=== PATIENT | male | born 1960 | race Caucasian/White ===

== ENCOUNTER 2016-07-13 07:13 | Day surgery (SDC) | payer MEDICARE ==
[2016-07-11 12:25] LABS: ASPARTATE AMINO TRANSFERASE 75 U/L (15-37); BLOOD UREA NITROGEN 20 mg/dL (7-18)
[~2016-07-13] VITALS: Ht 185.4 cm; Wt 93.2 kg
[~2016-07-13 07:13] MED LIST: AMLO10TA2 PO; BUPIVACAINE/PF-EPI 0.25% 1:200K ONE; ENAL2.5T PO; ENAL20TA PO; METO-93 PO; METO25TA35 PO; OXYC5CAP4 PO; TAMS0.4C2 PO
[2016-07-13 07:49] VITALS: BP 120/79
[2016-07-13] MEDS ORDERED: FENTANYL PF 250 MCG/5ML ONE (07:55)
[2016-07-13] MEDS ORDERED: MIDAZOLAM 1 MG/ML, 2ML ONE (07:55)
[2016-07-13] MEDS ORDERED: LIDOCAINE 1%, 2ML ONE (08:05)
[2016-07-13] MEDS ORDERED: DEXAMETHASONE 4 MG/ML, 1ML ONE (08:42)
[2016-07-13] MEDS ORDERED: CEFAZOLIN 1,000 MG ONE (08:42)
[2016-07-13] MEDS ORDERED: SUCCINYLCHOLINE 20 MG/ML, 10ML ONE (08:42)
[2016-07-13] MEDS ORDERED: ONDANSETRON 2MG/ML, 2ML ONE (08:42)
[2016-07-13] MEDS ORDERED: PROPOFOL 10 MG/ML, 20ML ONE (08:42)
[2016-07-13] MEDS ORDERED: THROMBIN 5,000 UNIT VIAL TP ONE ×2 (09:08→09:17)
[2016-07-13] MEDS ORDERED: BUPIVACAINE/PF-EPI 0.25% 1:200K INFIL ONE (09:15)
[2016-07-13] MEDS ORDERED: OXYcodone 5 MG/5 ML ORAL.SOL UDC PO PRN (09:30)
[2016-07-13] MEDS ORDERED: LABETALOL 5MG/ML, 20ML IV PRN (09:30)
[2016-07-13] MEDS ORDERED: ONDANSETRON 2MG/ML, 2ML IVPush PRN (09:30)
[2016-07-13] MEDS ORDERED: hydrALAzine 20 MG/ML, 1ML IV PRN (09:30)
[2016-07-13] MEDS ORDERED: ACETAMINOPHEN 325 MG TABLET PO PRN (09:30)
[2016-07-13] MEDS ORDERED: FENTANYL PF 100 MCG/2ML IV PRN (09:30)
[2016-07-13] MEDS ORDERED: METOCLOPRAMIDE 5 MG/ML, 2ML IV PRN (09:30)
[2016-07-13] MEDS ORDERED: OXYcodone 5 MG/5 ML ORAL.SOL UDC ONE (10:12)
[2016-07-13] MEDS ORDERED: HYDROmorphone 2 MG/ML, 1ML ONE (10:12)
[2016-07-13] MEDS: HYDROmorphone 1 MG/ML, 1ML IV PRN ×4 (10:16→10:38)
== END 2016-07-13 11:55 ==
LOC: OUT 07:13
PROVIDERS: ATTEND Surgery
DX: C49.22 Malignant neoplasm of connective and soft tissue of left lower limb, including hip (principal); I10 Essential (primary) hypertension; N40.0 Benign prostatic hyperplasia without lower urinary tract symptoms; F17.210 Nicotine dependence, cigarettes, uncomplicated; Z87.39 Personal history of other diseases of the musculoskeletal system and connective tissue; Z83.3 Family history of diabetes mellitus; Z80.9 Family history of malignant neoplasm, unspecified
CPT/HCPCS: 27328; 36415; 80053; 85025; 85610; 88304; J0330; J0690; J1100; J1170; J2250; J2405; J2704; J3010

== ENCOUNTER 2016-08-30 08:00 | Inpatient (IN) | payer MEDICARE, MEDICAID ==
[~2016-08-30] VITALS: Ht 184.2 cm; Wt 82.0 kg
[~2016-08-30 08:00] MED LIST changes: -BUPIVACAINE/PF-EPI 0.25% 1:200K ONE
[2016-08-30 08:26] VITALS: BP 138/88
[2016-08-30 09:11] LABS: ASPARTATE AMINO TRANSFERASE 116 U/L (15-37); BLOOD UREA NITROGEN 25 mg/dL (7-18)
[2016-08-30] MEDS ORDERED: LORazepam 2 MG/ML, 1ML IV PRN (11:00)
[2016-08-30] MEDS ORDERED: TIZANIDINE 4MG TABLET PO PRN (11:00)
[2016-08-30] MEDS: MAGNESIUM SULFATE IV SCH ×2 (11:44→19:50)
[2016-08-30] MEDS: ENOXAPARIN 40 MG/0.4 ML SQ SCH (11:44)
[2016-08-30] MEDS: [UNRECOGNIZED DRUG - OTHER] IV SCH ×2 (11:44→19:50)
[2016-08-30] MEDS: POTASSIUM CHLORIDE IV SCH ×2 (11:44→19:50)
[2016-08-30] MEDS: SODIUM ACETATE IV SCH ×2 (11:44→19:50)
[2016-08-30] MEDS ORDERED: FOSAPREPITANT 150 MG in SODIUM CHLORIDE 0.9% 150 ML IV ONE (12:30)
[2016-08-30] MEDS ORDERED: SODIUM CHLORIDE 0.9% IV ONE (13:00)
[2016-08-30] MEDS ORDERED: MESNA IV ONE (13:00)
[2016-08-30] MEDS ORDERED: IFOSFAMIDE IV ONE (13:00)
[2016-08-30] MEDS: SODIUM CHLORIDE 0.9% IVPB SCH (13:05)
[2016-08-30] MEDS: MESNA IVPB SCH (13:05)
[2016-08-30] MEDS: FAMOTIDINE 20 MG/2 ML IVPush SCH ×2 (13:10→19:49)
[2016-08-30] MEDS: ONDANSETRON 16 MG, DEXAMETHASONE 12 MG in SODIUM CHLORIDE 0.9% 50 ML IVPB SCH (14:06)
[2016-08-30 14:19] VITALS: BP 128/86
[2016-08-30] MEDS: SODIUM CHLORIDE 0.9% IV SCH (18:29)
[2016-08-30] MEDS: DOXORUBICIN IV SCH (18:29)
[2016-08-30] MEDS: OXYcodone IR 5MG TABLET PO PRN (18:34)
[2016-08-30 19:39] VITALS: BP 108/66
[2016-08-31] MEDS: NICOTINE 14MG/24 HR PATCH.TD24 TD SCH ×2 (00:39→22:01)
[2016-08-31 01:58] VITALS: BP 128/77
[2016-08-31 02:40] LABS: ASPARTATE AMINO TRANSFERASE 74 U/L (15-37); BLOOD UREA NITROGEN 26 mg/dL (7-18)
[2016-08-31] MEDS: [UNRECOGNIZED DRUG - OTHER] IV SCH ×3 (04:14→21:58)
[2016-08-31] MEDS: MAGNESIUM SULFATE IV SCH ×3 (04:14→21:58)
[2016-08-31] MEDS: POTASSIUM CHLORIDE IV SCH ×3 (04:14→21:58)
[2016-08-31] MEDS: SODIUM ACETATE IV SCH ×3 (04:14→21:58)
[2016-08-31] MEDS: METOPROLOL SUCCINATE 50 MG TAB.ER.24H PO SCH (06:24)
[2016-08-31 07:00] VITALS: BP 126/78
[2016-08-31] MEDS: FAMOTIDINE 20 MG/2 ML IVPush SCH ×2 (09:10→20:50)
[2016-08-31] MEDS: TAMSULOSIN 0.4 MG CAP.ER.24H PO SCH (09:10)
[2016-08-31] MEDS: AMLODIPINE 5 MG TABLET PO SCH (09:11)
[2016-08-31] MEDS: ENALAPRIL 20MG TABLET PO SCH (09:12)
[2016-08-31] MEDS: OXYcodone IR 5MG TABLET PO PRN ×2 (09:13→18:05)
[2016-08-31] MEDS: ENOXAPARIN 40 MG/0.4 ML SQ SCH (11:46)
[2016-08-31] MEDS ORDERED: SODIUM CHLORIDE 0.9% IV SCH (13:00)
[2016-08-31] MEDS ORDERED: IFOSFAMIDE IV SCH (13:00)
[2016-08-31] MEDS: ONDANSETRON 16 MG, DEXAMETHASONE 12 MG in SODIUM CHLORIDE 0.9% 50 ML IVPB SCH (13:13)
[2016-08-31 13:24] VITALS: BP 137/71
[2016-08-31] MEDS: SODIUM CHLORIDE 0.9% IVPB SCH (14:27)
[2016-08-31] MEDS: MESNA IVPB SCH (14:27)
[2016-08-31 19:09] VITALS: BP 134/77
[2016-08-31] MEDS: DOXORUBICIN IV SCH (20:45)
[2016-08-31] MEDS: SODIUM CHLORIDE 0.9% IV SCH (20:45)
[2016-08-31] MEDS: DOCUSATE 50 MG/5 ML, 10ML UDC PO PRN (20:50)
[2016-09-01 03:47] VITALS: BP 121/70
[2016-09-01] MEDS: METOPROLOL SUCCINATE 50 MG TAB.ER.24H PO SCH (05:40)
[2016-09-01 08:11] VITALS: BP 148/76
[2016-09-01] MEDS: POTASSIUM CHLORIDE IV SCH ×2 (08:13→18:17)
[2016-09-01] MEDS: [UNRECOGNIZED DRUG - OTHER] IV SCH ×2 (08:13→18:17)
[2016-09-01] MEDS: MAGNESIUM SULFATE IV SCH ×2 (08:13→18:17)
[2016-09-01] MEDS: SODIUM ACETATE IV SCH ×2 (08:13→18:17)
[2016-09-01 09:25] VITALS: BP 155/75
[2016-09-01] MEDS: OXYcodone IR 5MG TABLET PO PRN ×2 (09:26→21:16)
[2016-09-01] MEDS: AMLODIPINE 5 MG TABLET PO SCH (09:26)
[2016-09-01] MEDS: FAMOTIDINE 20 MG/2 ML IVPush SCH ×2 (09:26→21:16)
[2016-09-01] MEDS: TAMSULOSIN 0.4 MG CAP.ER.24H PO SCH (09:27)
[2016-09-01] MEDS: ENALAPRIL 20MG TABLET PO SCH (09:27)
[2016-09-01 09:49] LABS: BLOOD UREA NITROGEN 19 mg/dL (7-18)
[2016-09-01 09:53] LABS: ASPARTATE AMINO TRANSFERASE 56 U/L (15-37)
[2016-09-01] MEDS: ENOXAPARIN 40 MG/0.4 ML SQ SCH (11:04)
[2016-09-01 11:24] VITALS: BP 128/88
[2016-09-01] MEDS ORDERED: DIGOXIN 0.25 MG/ML, 2ML IVPush ONE ×2 (12:00→15:00)
[2016-09-01] MEDS ORDERED: HEPARIN 5,000 UNITS/ML, 1ML IV ONE (12:30)
[2016-09-01] MEDS ORDERED: HEPARIN 25,000 UNITS/500ML PMX 500 ML IV PRN (12:30)
[2016-09-01 13:26] LABS: IS PT STATUS REG ER OR PRE ER? NO
[2016-09-01] MEDS: ONDANSETRON 16 MG, DEXAMETHASONE 12 MG in SODIUM CHLORIDE 0.9% 50 ML IVPB SCH (14:55)
[2016-09-01] MEDS ORDERED: AMIODARONE 150 MG in DEXTROSE 5% 100 ML IV ONE (15:00)
[2016-09-01] MEDS ORDERED: FILTER 0.22 MICRON IV ONE (15:00)
[2016-09-01] MEDS: SODIUM CHLORIDE 0.9% IVPB SCH (15:12)
[2016-09-01] MEDS: MESNA IVPB SCH (15:12)
[2016-09-01 15:20] VITALS: BP 150/93
[2016-09-01] MEDS ORDERED: MAGNESIUM SULFATE PMX 2GM/50ML 50 ML IV ONE (15:30)
[2016-09-01] MEDS: SODIUM CHLORIDE 0.9% IV SCH (16:06)
[2016-09-01] MEDS: IFOSFAMIDE IV SCH (16:06)
[2016-09-01 19:59] LABS: IS PT STATUS REG ER OR PRE ER? NO
[2016-09-01 20:49] VITALS: BP 143/90
[2016-09-01] MEDS ORDERED: SODIUM CHLORIDE 0.9% IV ONE (21:00)
[2016-09-01] MEDS ORDERED: DOXORUBICIN IV ONE (21:00)
[2016-09-01] MEDS: HEPARIN 5,000 UNITS/ML, 1ML IV PRN (23:32)
[2016-09-02 01:00] VITALS: BP 130/79
[2016-09-02] MEDS: NICOTINE 14MG/24 HR PATCH.TD24 TD SCH (01:19)
[2016-09-02] MEDS: [UNRECOGNIZED DRUG - OTHER] IV SCH ×2 (02:50→17:28)
[2016-09-02] MEDS: POTASSIUM CHLORIDE IV SCH ×2 (02:50→17:28)
[2016-09-02] MEDS: SODIUM ACETATE IV SCH ×2 (02:50→17:28)
[2016-09-02] MEDS: MAGNESIUM SULFATE IV SCH ×2 (02:50→17:28)
[2016-09-02 06:45] VITALS: BP 153/102
[2016-09-02] MEDS: METOPROLOL SUCCINATE 100 MG TAB.ER.24H PO SCH (06:45)
[2016-09-02 07:56] VITALS: BP 150/98
[2016-09-02] MEDS: TAMSULOSIN 0.4 MG CAP.ER.24H PO SCH (08:31)
[2016-09-02] MEDS: FAMOTIDINE 20 MG/2 ML IVPush SCH ×2 (08:32→21:04)
[2016-09-02] MEDS: ENALAPRIL 20MG TABLET PO SCH (08:32)
[2016-09-02] MEDS: HEPARIN 5,000 UNITS/ML, 1ML IV PRN (08:34)
[2016-09-02] MEDS ORDERED: AMLODIPINE 5 MG TABLET PO SCH (09:00)
[2016-09-02 09:32] LABS: ASPARTATE AMINO TRANSFERASE 63 U/L (15-37); BLOOD UREA NITROGEN 12 mg/dL (7-18)
[2016-09-02] MEDS: DOCUSATE 50 MG/5 ML, 10ML UDC PO PRN (10:23)
[2016-09-02] MEDS: ONDANSETRON 16 MG, DEXAMETHASONE 12 MG in SODIUM CHLORIDE 0.9% 50 ML IVPB SCH (12:30)
[2016-09-02] MEDS ORDERED: BISACODYL 10 MG SUPP PR PRN (13:00)
[2016-09-02] MEDS ORDERED: BISACODYL 5 MG EC TABLET PO PRN (13:00)
[2016-09-02] MEDS ORDERED: DOCUSATE 100 MG CAPSULE PO PRN (13:00)
[2016-09-02 15:27] VITALS: BP 135/91
[2016-09-02] MEDS ORDERED: ONDANSETRON 16 MG, DEXAMETHASONE 12 MG in SODIUM CHLORIDE 0.9% 50 ML IVPB SCH (17:30)
[2016-09-02] MEDS: IFOSFAMIDE IV SCH (17:43)
[2016-09-02] MEDS: SODIUM CHLORIDE 0.9% IV SCH (17:43)
[2016-09-02 19:15] VITALS: BP 124/78
[2016-09-02] MEDS: MESNA IVPB SCH (19:44)
[2016-09-02] MEDS: SODIUM CHLORIDE 0.9% IVPB SCH (19:44)
[2016-09-02] MEDS: ENOXAPARIN 40 MG/0.4 ML SQ SCH (21:04)
[2016-09-02] MEDS: OXYcodone IR 5MG TABLET PO PRN (21:04)
[2016-09-03 02:13] VITALS: BP 154/104
[2016-09-03] MEDS: POTASSIUM CHLORIDE IV SCH ×3 (03:32→21:13)
[2016-09-03] MEDS: MAGNESIUM SULFATE IV SCH ×3 (03:32→21:13)
[2016-09-03] MEDS: SODIUM ACETATE IV SCH ×3 (03:32→21:13)
[2016-09-03] MEDS: [UNRECOGNIZED DRUG - OTHER] IV SCH ×3 (03:32→21:13)
[2016-09-03 05:54] VITALS: BP 151/102
[2016-09-03] MEDS: METOPROLOL SUCCINATE 100 MG TAB.ER.24H PO SCH ×3 (05:55→21:15)
[2016-09-03 07:10] LABS: ASPARTATE AMINO TRANSFERASE 87 U/L (15-37); BLOOD UREA NITROGEN 15 mg/dL (7-18)
[2016-09-03 08:18] VITALS: BP 146/98
[2016-09-03] MEDS: TAMSULOSIN 0.4 MG CAP.ER.24H PO SCH (09:23)
[2016-09-03] MEDS: ENALAPRIL 20MG TABLET PO SCH (09:23)
[2016-09-03 16:00] VITALS: BP 131/87
[2016-09-03] MEDS ORDERED: ONDANSETRON 2MG/ML, 2ML ONE (17:07)
[2016-09-03] MEDS ORDERED: ONDANSETRON 2MG/ML, 2ML IVPush PRN (17:30)
[2016-09-03] MEDS ORDERED: ONDANSETRON 4 MG TABLET PO PRN (17:30)
[2016-09-03 20:00] VITALS: BP 146/100
[2016-09-03] MEDS: ENOXAPARIN 40 MG/0.4 ML SQ SCH (21:13)
[2016-09-03] MEDS: NICOTINE 14MG/24 HR PATCH.TD24 TD SCH ×2 (23:02)
[2016-09-04 03:00] VITALS: BP 133/100
[2016-09-04] MEDS: MAGNESIUM SULFATE IV SCH ×2 (05:46→15:02)
[2016-09-04] MEDS: POTASSIUM CHLORIDE IV SCH ×2 (05:46→15:02)
[2016-09-04] MEDS: SODIUM ACETATE IV SCH ×2 (05:46→15:02)
[2016-09-04] MEDS: [UNRECOGNIZED DRUG - OTHER] IV SCH ×2 (05:46→15:02)
[2016-09-04 08:00] VITALS: BP 142/99
[2016-09-04] MEDS: OXYcodone IR 5MG TABLET PO PRN ×2 (08:19→15:25)
[2016-09-04] MEDS: ENALAPRIL 20MG TABLET PO SCH (08:20)
[2016-09-04] MEDS: TAMSULOSIN 0.4 MG CAP.ER.24H PO SCH (08:20)
[2016-09-04] MEDS: METOPROLOL SUCCINATE 100 MG TAB.ER.24H PO SCH (08:20)
[2016-09-04 11:46] LABS: BLOOD UREA NITROGEN 19 mg/dL (7-18)
[2016-09-04 11:49] LABS: ASPARTATE AMINO TRANSFERASE 222 U/L (15-37)
[2016-09-04 12:01] VITALS: BP 137/95
[2016-09-04] MEDS ORDERED: ONDA-39 PO (15:37)
== END 2016-09-04 18:00 | disposition home or self-care (01) | DRG 847 ==
LOC: 3NW 08:04 → 5SO 09-01 13:34
PROVIDERS: ADMIT Internal Medicine; ATTEND Internal Medicine
PROC: 02HV33Z Insertion of Infusion Device into Superior Vena Cava, Percutaneous Approach (ICD-10-PCS; 2016-08-30)
PROC: B548ZZA Ultrasonography of Superior Vena Cava, Guidance (ICD-10-PCS; 2016-08-30)
PROC: 3E04305 Introduction of Other Antineoplastic into Central Vein, Percutaneous Approach (ICD-10-PCS; 2016-08-30)
PROC: 02HV33Z Insertion of Infusion Device into Superior Vena Cava, Percutaneous Approach (ICD-10-PCS; principal; 2016-09-01)
PROC: B5181ZA Fluoroscopy of Superior Vena Cava using Low Osmolar Contrast, Guidance (ICD-10-PCS; 2016-09-01)
DX: Z51.11 Encounter for antineoplastic chemotherapy (principal); B17.10 Acute hepatitis C without hepatic coma; D68.69 Other thrombophilia; C78.02 Secondary malignant neoplasm of left lung; C78.01 Secondary malignant neoplasm of right lung; C76.52 Malignant neoplasm of left lower limb; B19.20 Unspecified viral hepatitis C without hepatic coma; D69.6 Thrombocytopenia, unspecified; D72.829 Elevated white blood cell count, unspecified; F17.210 Nicotine dependence, cigarettes, uncomplicated; I11.9 Hypertensive heart disease without heart failure; M54.5 Low back pain; R73.9 Hyperglycemia, unspecified; G89.29 Other chronic pain; I48.91 Unspecified atrial fibrillation; N40.0 Benign prostatic hyperplasia without lower urinary tract symptoms; Z80.1 Family history of malignant neoplasm of trachea, bronchus and lung; Z92.21 Personal history of antineoplastic chemotherapy; Z90.89 Acquired absence of other organs; Z82.49 Family history of ischemic heart disease and other diseases of the circulatory system
CPT/HCPCS: 36415; 36569; 71010; 76937; 77001; 80053; 83735; 84439; 84443; 84484; 85025; 85520; 93005; 93306; J1100; J1453; J1644; J1650; J2405; J3475; J3480; J9000; J9208; J9209; C1751; J0282; J1160; J2060; J7030; J7040; S0028

== ENCOUNTER 2016-10-02 08:00 | Inpatient (IN) | payer MEDICARE, MEDICAID ==
[~2016-10-02] VITALS: Ht 185.4 cm; Wt 95.5 kg
[~2016-10-02 08:00] MED LIST changes: +ONDA-39 PO
[2016-10-02 09:30] VITALS: BP 114/81
[2016-10-02 11:10] LABS: ASPARTATE AMINO TRANSFERASE 78 U/L (15-37); BLOOD UREA NITROGEN 13 mg/dL (7-18)
[2016-10-02 11:20] LABS: HEMATOCRIT 27.9 % (39.2-51.8); HEMOGLOBIN 9.4 g/dL (13.7-18.0); WHITE BLOOD COUNT 4.3 x10^3/uL (3.4-10)
[2016-10-02] MEDS ORDERED: TIZANIDINE 4MG TABLET PO PRN (12:00)
[2016-10-02] MEDS ORDERED: OXYcodone IR 5MG TABLET PO PRN (12:00)
[2016-10-02] MEDS ORDERED: LORazepam 2 MG/ML, 1ML IVPush PRN ×2 (12:00)
[2016-10-02] MEDS ORDERED: POTASSIUM CHLORIDE 20 MEQ TAB.ER.PRT PO ONE (12:30)
[2016-10-02] MEDS: ONDANSETRON 16 MG, DEXAMETHASONE 12 MG in SODIUM CHLORIDE 0.9% 50 ML IVPB SCH (12:46)
[2016-10-02] MEDS: SODIUM ACETATE IV SCH (12:46)
[2016-10-02] MEDS: [UNRECOGNIZED DRUG - OTHER] IV SCH (12:46)
[2016-10-02] MEDS: MAGNESIUM SULFATE IV SCH (12:46)
[2016-10-02] MEDS: POTASSIUM CHLORIDE IV SCH (12:46)
[2016-10-02] MEDS: NICOTINE 14MG/24 HR PATCH.TD24 TD SCH (12:47)
[2016-10-02] MEDS: ENOXAPARIN 40 MG/0.4 ML SQ SCH (12:47)
[2016-10-02] MEDS: FAMOTIDINE 20 MG/2 ML IVPush SCH ×2 (12:47→21:09)
[2016-10-02] MEDS ORDERED: FOSAPREPITANT 150 MG in SODIUM CHLORIDE 0.9% 145 ML IV ONE (13:00)
[2016-10-02] MEDS ORDERED: MESNA IV ONE (14:00)
[2016-10-02] MEDS ORDERED: SODIUM CHLORIDE 0.9% IV ONE (14:00)
[2016-10-02] MEDS ORDERED: IFOSFAMIDE IV ONE (14:00)
[2016-10-02 14:24] VITALS: BP 103/68
[2016-10-02] MEDS: MESNA IVPB SCH (14:52)
[2016-10-02] MEDS: SODIUM CHLORIDE 0.9% IVPB SCH (14:52)
[2016-10-02] MEDS ORDERED: SODIUM CHLORIDE 0.9% IV SCH (17:00)
[2016-10-02] MEDS ORDERED: DOXORUBICIN IV SCH (17:00)
[2016-10-02] MEDS ORDERED: MAGNESIUM SULFATE PMX 4GM/100M 100 ML IVPB ONE (17:30)
[2016-10-02] MEDS ORDERED: CALCIUM GLUCONATE 9.2 MEQ in SODIUM CHLORIDE 0.9% 100 ML IV ONE (17:30)
[2016-10-02 19:22] VITALS: BP 118/77
[2016-10-02] MEDS: DOCUSATE 100 MG CAPSULE PO SCH (21:09)
[2016-10-02] MEDS: OXYcodone IR 5MG TABLET PO PRN (21:10)
[2016-10-03] MEDS: [UNRECOGNIZED DRUG - OTHER] IV SCH ×3 (00:07→16:03)
[2016-10-03] MEDS: SODIUM ACETATE IV SCH ×3 (00:07→16:03)
[2016-10-03] MEDS: POTASSIUM CHLORIDE IV SCH ×3 (00:07→16:03)
[2016-10-03] MEDS: MAGNESIUM SULFATE IV SCH ×3 (00:07→16:03)
[2016-10-03 01:12] VITALS: BP 116/73
[2016-10-03 04:17] LABS: ASPARTATE AMINO TRANSFERASE 81 U/L (15-37); BLOOD UREA NITROGEN 20 mg/dL (7-18)
[2016-10-03 04:23] LABS: HEMATOCRIT 32.5 % (39.2-51.8); HEMOGLOBIN 10.9 g/dL (13.7-18.0); WHITE BLOOD COUNT 4.4 x10^3/uL (3.4-10)
[2016-10-03 07:28] VITALS: BP 108/68
[2016-10-03] MEDS: TAMSULOSIN 0.4 MG CAP.ER.24H PO SCH (07:41)
[2016-10-03] MEDS: DOCUSATE 100 MG CAPSULE PO SCH ×2 (07:41→19:42)
[2016-10-03] MEDS: FAMOTIDINE 20 MG/2 ML IVPush SCH ×2 (07:41→19:42)
[2016-10-03] MEDS: AMLODIPINE 5 MG TABLET PO SCH (07:41)
[2016-10-03] MEDS: METOPROLOL TARTRATE 50 MG TABLET PO SCH (07:42)
[2016-10-03] MEDS: ENALAPRIL 20MG TABLET PO SCH (07:42)
[2016-10-03] MEDS: NICOTINE 14MG/24 HR PATCH.TD24 TD SCH (07:42)
[2016-10-03] MEDS: ENOXAPARIN 40 MG/0.4 ML SQ SCH (12:20)
[2016-10-03] MEDS: ONDANSETRON 16 MG, DEXAMETHASONE 12 MG in SODIUM CHLORIDE 0.9% 50 ML IVPB SCH (13:11)
[2016-10-03 13:12] VITALS: BP 97/61
[2016-10-03] MEDS ORDERED: ZOLPIDEM 10MG TABLET PO PRN (14:30)
[2016-10-03] MEDS ORDERED: FUROSEMIDE 20 MG TABLET PO ONE (14:30)
[2016-10-03] MEDS ORDERED: TEMAZEPAM 15 MG CAPSULE PO PRN (15:30)
[2016-10-03] MEDS: SODIUM CHLORIDE 0.9% IV SCH (16:11)
[2016-10-03] MEDS: IFOSFAMIDE IV SCH (16:11)
[2016-10-03] MEDS: OXYcodone IR 5MG TABLET PO PRN (19:42)
[2016-10-03] MEDS: SODIUM CHLORIDE 0.9% IVPB SCH (19:42)
[2016-10-03] MEDS: MESNA IVPB SCH (19:42)
[2016-10-03 20:25] VITALS: BP 104/62
[2016-10-04] MEDS: SODIUM CHLORIDE 0.9% IV SCH ×2 (00:43→15:54)
[2016-10-04] MEDS: DOXORUBICIN IV SCH (00:43)
[2016-10-04] MEDS: MAGNESIUM SULFATE IV SCH ×3 (01:31→20:20)
[2016-10-04] MEDS: [UNRECOGNIZED DRUG - OTHER] IV SCH ×3 (01:31→20:20)
[2016-10-04] MEDS: SODIUM ACETATE IV SCH ×3 (01:31→20:20)
[2016-10-04] MEDS: POTASSIUM CHLORIDE IV SCH ×3 (01:31→20:20)
[2016-10-04 01:46] VITALS: BP 113/75
[2016-10-04 03:38] LABS: WHITE BLOOD COUNT 9.9 x10^3/uL (3.4-10)
[2016-10-04 03:49] LABS: ASPARTATE AMINO TRANSFERASE 54 U/L (15-37); BLOOD UREA NITROGEN 21 mg/dL (7-18)
[2016-10-04] MEDS: FAMOTIDINE 20 MG/2 ML IVPush SCH ×2 (08:05→20:25)
[2016-10-04] MEDS: TAMSULOSIN 0.4 MG CAP.ER.24H PO SCH (08:07)
[2016-10-04] MEDS: METOPROLOL TARTRATE 50 MG TABLET PO SCH (08:07)
[2016-10-04] MEDS: ENALAPRIL 20MG TABLET PO SCH (08:08)
[2016-10-04] MEDS: DOCUSATE 100 MG CAPSULE PO SCH ×2 (08:08→20:25)
[2016-10-04] MEDS: AMLODIPINE 5 MG TABLET PO SCH (08:08)
[2016-10-04] MEDS: FUROSEMIDE 40 MG TABLET PO SCH (08:08)
[2016-10-04] MEDS: NICOTINE 14MG/24 HR PATCH.TD24 TD SCH (08:09)
[2016-10-04 08:11] VITALS: BP 131/79
[2016-10-04] MEDS ORDERED: FUROSEMIDE 20 MG TABLET PO SCH (09:00)
[2016-10-04] MEDS: ENOXAPARIN 40 MG/0.4 ML SQ SCH (11:36)
[2016-10-04] MEDS: ONDANSETRON 16 MG, DEXAMETHASONE 12 MG in SODIUM CHLORIDE 0.9% 50 ML IVPB SCH (14:09)
[2016-10-04 14:10] VITALS: BP 100/61
[2016-10-04] MEDS: OXYcodone IR 5MG TABLET PO PRN ×2 (14:10→20:29)
[2016-10-04] MEDS: IFOSFAMIDE IV SCH (15:54)
[2016-10-04 19:47] VITALS: BP 93/67
[2016-10-04] MEDS: SODIUM CHLORIDE 0.9% IVPB SCH (20:19)
[2016-10-04] MEDS: MESNA IVPB SCH (20:19)
[2016-10-05] MEDS: SODIUM CHLORIDE 0.9% IV SCH ×2 (01:18→15:57)
[2016-10-05] MEDS: DOXORUBICIN IV SCH (01:18)
[2016-10-05 02:30] VITALS: BP 125/70
[2016-10-05 03:52] LABS: ASPARTATE AMINO TRANSFERASE 55 U/L (15-37); BLOOD UREA NITROGEN 19 mg/dL (7-18); HEMATOCRIT 31.7 % (39.2-51.8); HEMOGLOBIN 10.7 g/dL (13.7-18.0); WHITE BLOOD COUNT 7.5 x10^3/uL (3.4-10)
[2016-10-05] MEDS: MAGNESIUM SULFATE IV SCH ×2 (04:19→13:01)
[2016-10-05] MEDS: [UNRECOGNIZED DRUG - OTHER] IV SCH ×2 (04:19→13:01)
[2016-10-05] MEDS: POTASSIUM CHLORIDE IV SCH ×2 (04:19→13:01)
[2016-10-05] MEDS: SODIUM ACETATE IV SCH ×2 (04:19→13:01)
[2016-10-05] MEDS: DOCUSATE 100 MG CAPSULE PO SCH ×2 (08:16→22:26)
[2016-10-05] MEDS: TAMSULOSIN 0.4 MG CAP.ER.24H PO SCH (08:16)
[2016-10-05] MEDS: METOPROLOL TARTRATE 50 MG TABLET PO SCH (08:16)
[2016-10-05] MEDS: ENALAPRIL 20MG TABLET PO SCH (08:16)
[2016-10-05] MEDS: AMLODIPINE 5 MG TABLET PO SCH (08:16)
[2016-10-05] MEDS: FUROSEMIDE 40 MG TABLET PO SCH (08:16)
[2016-10-05] MEDS: FAMOTIDINE 20 MG/2 ML IVPush SCH ×2 (08:16→22:26)
[2016-10-05] MEDS: NICOTINE 14MG/24 HR PATCH.TD24 TD SCH (08:17)
[2016-10-05 08:18] VITALS: BP 156/97
[2016-10-05] MEDS: ENOXAPARIN 40 MG/0.4 ML SQ SCH (11:43)
[2016-10-05] MEDS: ONDANSETRON 16 MG, DEXAMETHASONE 12 MG in SODIUM CHLORIDE 0.9% 50 ML IVPB SCH (13:01)
[2016-10-05 14:45] VITALS: BP 113/72
[2016-10-05] MEDS: IFOSFAMIDE IV SCH (15:57)
[2016-10-05 20:07] VITALS: BP 126/86
[2016-10-05] MEDS: SODIUM CHLORIDE 0.9% IVPB SCH (22:26)
[2016-10-05] MEDS: MESNA IVPB SCH (22:26)
[2016-10-06] MEDS: POTASSIUM CHLORIDE IV SCH ×3 (00:19→17:25)
[2016-10-06] MEDS: [UNRECOGNIZED DRUG - OTHER] IV SCH ×3 (00:19→17:25)
[2016-10-06] MEDS: MAGNESIUM SULFATE IV SCH ×3 (00:19→17:25)
[2016-10-06] MEDS: SODIUM ACETATE IV SCH ×3 (00:19→17:25)
[2016-10-06 02:56] VITALS: BP 121/77
[2016-10-06] MEDS: METOPROLOL TARTRATE 50 MG TABLET PO SCH (08:24)
[2016-10-06] MEDS: ENALAPRIL 20MG TABLET PO SCH (08:24)
[2016-10-06] MEDS: AMLODIPINE 5 MG TABLET PO SCH (08:24)
[2016-10-06] MEDS: TAMSULOSIN 0.4 MG CAP.ER.24H PO SCH (08:24)
[2016-10-06] MEDS: DOCUSATE 100 MG CAPSULE PO SCH ×2 (08:24→21:00)
[2016-10-06] MEDS: NICOTINE 14MG/24 HR PATCH.TD24 TD SCH (08:25)
[2016-10-06 08:30] VITALS: BP 138/92
[2016-10-06 09:12] LABS: ASPARTATE AMINO TRANSFERASE 91 U/L (15-37); BLOOD UREA NITROGEN 20 mg/dL (7-18)
[2016-10-06 09:21] LABS: HEMATOCRIT 37.6 % (39.2-51.8); HEMOGLOBIN 12.7 g/dL (13.7-18.0); WHITE BLOOD COUNT 8.6 x10^3/uL (3.4-10)
[2016-10-06] MEDS: ENOXAPARIN 40 MG/0.4 ML SQ SCH (11:08)
[2016-10-06] MEDS: OXYcodone IR 5MG TABLET PO PRN (13:33)
[2016-10-06 13:41] VITALS: BP 130/87
[2016-10-06] MEDS: ONDANSETRON 2MG/ML, 2ML IVPush PRN (18:00)
[2016-10-06] MEDS ORDERED: SODIUM CHLORIDE 0.9% IV ONE ×2 (19:00→20:00)
[2016-10-06] MEDS ORDERED: IFOSFAMIDE IV ONE (19:00)
[2016-10-06] MEDS ORDERED: MESNA IV ONE (19:00)
[2016-10-06] MEDS ORDERED: DEXAMETHASONE 4 MG/ML, 5ML IVPush ONE (19:00)
[2016-10-06 19:32] VITALS: BP 137/87
[2016-10-06] MEDS ORDERED: DOXORUBICIN IV ONE (20:00)
[2016-10-07] MEDS: [UNRECOGNIZED DRUG - OTHER] IV SCH ×2 (01:27→13:21)
[2016-10-07] MEDS: POTASSIUM CHLORIDE IV SCH ×2 (01:27→13:21)
[2016-10-07] MEDS: SODIUM ACETATE IV SCH ×2 (01:27→13:21)
[2016-10-07] MEDS: MAGNESIUM SULFATE IV SCH ×2 (01:27→13:21)
[2016-10-07 01:36] VITALS: BP 123/85
[2016-10-07 04:39] LABS: HEMATOCRIT 35.1 % (39.2-51.8); HEMOGLOBIN 11.9 g/dL (13.7-18.0); WHITE BLOOD COUNT 6.3 x10^3/uL (3.4-10)
[2016-10-07 04:48] LABS: ASPARTATE AMINO TRANSFERASE 115 U/L (15-37); BLOOD UREA NITROGEN 20 mg/dL (7-18)
[2016-10-07] MEDS: ONDANSETRON 2MG/ML, 2ML IVPush PRN (06:37)
[2016-10-07 07:38] VITALS: BP 136/90
[2016-10-07] MEDS: AMLODIPINE 5 MG TABLET PO SCH (09:55)
[2016-10-07] MEDS: DOCUSATE 100 MG CAPSULE PO SCH (09:55)
[2016-10-07] MEDS: METOPROLOL TARTRATE 50 MG TABLET PO SCH (09:55)
[2016-10-07] MEDS: ENALAPRIL 20MG TABLET PO SCH (09:55)
[2016-10-07] MEDS: TAMSULOSIN 0.4 MG CAP.ER.24H PO SCH (09:55)
[2016-10-07] MEDS: NICOTINE 14MG/24 HR PATCH.TD24 TD SCH (09:58)
[2016-10-07 13:04] VITALS: BP 145/97
[2016-10-07] MEDS: OXYcodone IR 5MG TABLET PO PRN (13:18)
[2016-10-07] MEDS: ENOXAPARIN 40 MG/0.4 ML SQ SCH (13:23)
[2016-10-07] MEDS ORDERED: ONDA8TAB9 PO (17:29)
[2016-10-07] MEDS ORDERED: PROC10TA78 PO (17:30)
== END 2016-10-07 21:30 | disposition home or self-care (01) | DRG 846 ==
LOC: 3NW 09:08
PROVIDERS: ADMIT Internal Medicine; ATTEND Internal Medicine
PROC: 02HV33Z Insertion of Infusion Device into Superior Vena Cava, Percutaneous Approach (ICD-10-PCS; principal; 2016-10-06)
PROC: B5181ZA Fluoroscopy of Superior Vena Cava using Low Osmolar Contrast, Guidance (ICD-10-PCS; 2016-10-06)
PROC: B548ZZA Ultrasonography of Superior Vena Cava, Guidance (ICD-10-PCS; 2016-10-06)
DX: Z51.11 Encounter for antineoplastic chemotherapy (principal); E43 Unspecified severe protein-calorie malnutrition; C76.52 Malignant neoplasm of left lower limb; E83.42 Hypomagnesemia; F12.90 Cannabis use, unspecified, uncomplicated; I10 Essential (primary) hypertension; N40.0 Benign prostatic hyperplasia without lower urinary tract symptoms; G89.29 Other chronic pain; E83.51 Hypocalcemia; M54.5 Low back pain; Z80.1 Family history of malignant neoplasm of trachea, bronchus and lung; Z80.7 Family history of other malignant neoplasms of lymphoid, hematopoietic and related tissues; Z87.891 Personal history of nicotine dependence
CPT/HCPCS: 36415; 36569; 76937; 77001; 80053; 83735; 85025; J0610; J1100; J1453; J1650; J2405; J3475; J3480; J9000; J9208; J9209; C1751; J2060; J7030; J7040; J7050; S0028

== ENCOUNTER → 2016-11-02 | Outpatient (CLI) | payer MEDICARE, MEDICAID ==
[~2016-11-02] MED LIST changes: -ONDA-39 PO; +ONDA4TAB12 PO; +ONDA8TAB9 PO; +OXYC5CAP2 PO; -OXYC5CAP4 PO; +PROC10TA78 PO
== END | disposition home or self-care (01) ==
LOC: EDSTATUS 09-10 10:24 → ROC 14:16
PROVIDERS: ATTEND Radiology Radiation Oncology
DX: C76.52 Malignant neoplasm of left lower limb (principal)
CPT/HCPCS: 99213; G0463

== ENCOUNTER → 2016-11-03 | Outpatient (CLI) | payer MEDICARE, MEDICAID ==
[~2016-11-03] MED LIST changes: +OMNIPAQUE 350 MG/ML, 150 ML BOTTLE ONE
== END | disposition home or self-care (01) ==
LOC: CFH 09:46
PROVIDERS: ATTEND Internal Medicine
DX: C78.00 Secondary malignant neoplasm of unspecified lung (principal); C49.22 Malignant neoplasm of connective and soft tissue of left lower limb, including hip; K74.60 Unspecified cirrhosis of liver; I86.4 Gastric varices; M51.34 Other intervertebral disc degeneration, thoracic region
CPT/HCPCS: 71260; 73701; 74177; Q9967

== ENCOUNTER → 2016-12-08 | Outpatient (CLI) | payer MEDICARE, MEDICAID ==
[~2016-12-08] MED LIST changes: -OMNIPAQUE 350 MG/ML, 150 ML BOTTLE ONE
== END | disposition home or self-care (01) ==
LOC: STAR 14:15
PROVIDERS: ATTEND Surgery
DX: Z02.9 Encounter for administrative examinations, unspecified (principal)

== ENCOUNTER 2017-01-08 10:53 | Inpatient (IN) | payer MEDICARE, MEDICAID ==
[~2017-01-08] VITALS: Ht 182.9 cm; Wt 86.5 kg
[~2017-01-08 10:53] MED LIST changes: +GUAI-103 PO
[2017-01-08] MEDS ORDERED: SODIUM CHLORIDE FLUSH 10ML SYR IVF ONE (11:30)
[2017-01-08] MEDS ORDERED: ALBUTEROL/IPRATROPIUM 2.5MG/0.5MG, 3 ML NPPB ONE (11:30)
[2017-01-08] MEDS ORDERED: ALBUTEROL/IPRATROPIUM 2.5MG/0.5MG, 3 ML ONE ×3 (11:47→18:59)
[2017-01-08 12:07] LABS: HEMATOCRIT 41.2 % (39.2-51.8); HEMOGLOBIN 14.3 g/dL (13.7-18.0); WHITE BLOOD COUNT 13.1 x10^3/uL (3.4-10)
[2017-01-08 12:09] LABS: ASPARTATE AMINO TRANSFERASE 32 U/L (15-37); BLOOD UREA NITROGEN 20 mg/dL (7-18)
[2017-01-08 12:17] LABS: IS PT STATUS REG ER OR PRE ER? YES
[2017-01-08] MEDS ORDERED: OMNIPAQUE 350 MG/ML, 100ML BOTTLE ONE (12:55)
[2017-01-08] MEDS ORDERED: CEFTRIAXONE PMX 1GM/50ML 50 ML ONE (13:57)
[2017-01-08] MEDS ORDERED: CEFTRIAXONE PMX 1GM/50ML 50 ML IV ONE (14:00)
[2017-01-08] MEDS ORDERED: OXYcodone/APAP 7.5/325MG TABLET PO ONE (14:00)
[2017-01-08 15:13] VITALS: BP 133/95
[2017-01-08] MEDS ORDERED: SODIUM CHLORIDE 0.9% 1,000 ML IV SCH (15:14)
[2017-01-08] MEDS ORDERED: ONDANSETRON 8 MG TABLET PO PRN (15:30)
[2017-01-08] MEDS ORDERED: ENOXAPARIN 40 MG/0.4 ML SQ SCH (15:30)
[2017-01-08] MEDS ORDERED: PROCHLORPERAZINE 10MG TABLET PO PRN (15:30)
[2017-01-08] MEDS ORDERED: hydrALAzine 20 MG/ML, 1ML IV PRN (15:30)
[2017-01-08] MEDS ORDERED: VANCOMYCIN PER PHARMACY MC PRN (15:30)
[2017-01-08] MEDS ORDERED: morphine SULFATE 10 MG/ML, 1ML IVPush PRN (15:30)
[2017-01-08] MEDS: OXYcodone IR 5MG TABLET PO PRN ×2 (15:57→23:42)
[2017-01-08] MEDS ORDERED: PHARMACOKINETIC MONITORING MC PRN (16:00)
[2017-01-08] MEDS ORDERED: PHARMACOKINETIC CONSULTATION MC ONE (16:00)
[2017-01-08] MEDS: PIPERACILLIN/TAZO/PMX 3.375GM 50 ML IV SCH ×2 (16:20→23:42)
[2017-01-08] MEDS: VANCOMYCIN 1,800 MG in SODIUM CHLORIDE 0.9% 250 ML IV SCH (17:00)
[2017-01-08] MEDS: ALBUTEROL/IPRATROPIUM 2.5MG/0.5MG, 3 ML NPPB SCH (19:01)
[2017-01-08 20:00] VITALS: BP 149/80
[2017-01-08] MEDS: ACETAMINOPHEN 325 MG TABLET PO PRN (23:42)
[2017-01-09] MEDS: NICOTINE 7 MG/24 HR PATCH.TD24 TD SCH ×2 (01:04→22:11)
[2017-01-09 02:00] VITALS: BP 155/82
[2017-01-09 04:58] LABS: ASPARTATE AMINO TRANSFERASE 29 U/L (15-37); BLOOD UREA NITROGEN 14 mg/dL (7-18)
[2017-01-09 05:18] LABS: HEMATOCRIT 35.2 % (39.2-51.8); HEMOGLOBIN 12.1 g/dL (13.7-18.0); WHITE BLOOD COUNT 9.3 x10^3/uL (3.4-10)
[2017-01-09] MEDS ORDERED: POTASSIUM CHLORIDE 20 MEQ TAB.ER.PRT PO ONE (07:30)
[2017-01-09] MEDS: ALBUTEROL/IPRATROPIUM 2.5MG/0.5MG, 3 ML NPPB SCH ×4 (07:35→19:37)
[2017-01-09 08:15] VITALS: BP 118/68
[2017-01-09] MEDS: SODIUM CHLORIDE 0.9% 1,000 ML IV SCH ×2 (08:29→18:18)
[2017-01-09] MEDS: PIPERACILLIN/TAZO/PMX 3.375GM 50 ML IV SCH ×3 (08:30→22:11)
[2017-01-09] MEDS: AMLODIPINE 5 MG TABLET PO SCH (08:33)
[2017-01-09] MEDS: GUAIFENESIN ER 600 MG TABLET PO SCH (08:34)
[2017-01-09] MEDS: METOPROLOL SUCCINATE 50 MG TAB.ER.24H PO SCH (08:34)
[2017-01-09] MEDS: ENALAPRIL 20MG TABLET PO SCH (08:34)
[2017-01-09] MEDS: VANCOMYCIN 1,800 MG in SODIUM CHLORIDE 0.9% 250 ML IV SCH (10:02)
[2017-01-09 14:13] VITALS: BP 127/75
[2017-01-09] MEDS: OXYcodone IR 5MG TABLET PO PRN ×2 (15:00→22:10)
[2017-01-09] MEDS: ACETAMINOPHEN 325 MG TABLET PO PRN ×2 (15:05→22:11)
[2017-01-09] MEDS ORDERED: MAGNESIUM SULFATE PMX 2GM/50ML 50 ML IV ONE (18:00)
[2017-01-09 19:53] VITALS: BP 135/80
[2017-01-10 02:47] VITALS: BP 155/88
[2017-01-10] MEDS: SODIUM CHLORIDE 0.9% 1,000 ML IV SCH ×2 (04:35→20:22)
[2017-01-10] MEDS: VANCOMYCIN 1,800 MG in SODIUM CHLORIDE 0.9% 250 ML IV SCH (04:35)
[2017-01-10] MEDS: OXYcodone IR 5MG TABLET PO PRN ×3 (04:37→20:29)
[2017-01-10] MEDS: ACETAMINOPHEN 325 MG TABLET PO PRN ×3 (04:38→20:29)
[2017-01-10 05:18] LABS: BLOOD UREA NITROGEN 7 mg/dL (7-18)
[2017-01-10 05:38] LABS: HEMATOCRIT 38.6 % (39.2-51.8); HEMOGLOBIN 13.1 g/dL (13.7-18.0)
[2017-01-10] MEDS: PIPERACILLIN/TAZO/PMX 3.375GM 50 ML IV SCH ×2 (06:23→15:28)
[2017-01-10 07:44] VITALS: BP 124/72
[2017-01-10] MEDS: POTASSIUM CHLORIDE 20 MEQ TAB.ER.PRT PO SCH ×2 (08:00→16:44)
[2017-01-10] MEDS: ALBUTEROL/IPRATROPIUM 2.5MG/0.5MG, 3 ML NPPB SCH ×4 (08:00→20:56)
[2017-01-10] MEDS: ENALAPRIL 20MG TABLET PO SCH (09:00)
[2017-01-10] MEDS: AMLODIPINE 5 MG TABLET PO SCH (09:00)
[2017-01-10] MEDS: METOPROLOL SUCCINATE 50 MG TAB.ER.24H PO SCH (09:00)
[2017-01-10] MEDS: GUAIFENESIN ER 600 MG TABLET PO SCH (09:00)
[2017-01-10] MEDS: methylPREDNISolone SOD SUCC 125 MG/2 ML IVPush SCH ×2 (09:17→16:44)
[2017-01-10 13:43] VITALS: BP 130/77
[2017-01-10] MEDS: GUAIFENESIN/DM 100-10MG, 5ML UDC PO PRN ×2 (15:31→20:29)
[2017-01-10] MEDS ORDERED: FUROSEMIDE 20 MG/2 ML IV ONE (16:00)
[2017-01-10 16:22] LABS: ABG COLLECTION SITE LEFT RADIAL; COLLATERAL CIRCULATION TESTING NORMAL
[2017-01-10] MEDS: CEFTAROLINE 600 MG in SODIUM CHLORIDE 0.9% 100 ML IV SCH (16:45)
[2017-01-10 18:08] LABS: ABG COLLECTION SITE RIGHT RADIAL; COLLATERAL CIRCULATION TESTING NORMAL
[2017-01-10 20:23] VITALS: BP 132/78
[2017-01-10] MEDS: NICOTINE 7 MG/24 HR PATCH.TD24 TD SCH (22:30)
[2017-01-10] MEDS ORDERED: ALUMINUM/MAG/SIMETHICONE 30 ML UDC ONE (23:20)
[2017-01-10] MEDS ORDERED: ALUMINUM/MAG/SIMETHICONE 30 ML UDC PO PRN (23:30)
[2017-01-11] MEDS: methylPREDNISolone SOD SUCC 125 MG/2 ML IVPush SCH ×3 (00:15→16:07)
[2017-01-11 02:56] VITALS: BP 125/74
[2017-01-11 04:32] LABS: BLOOD UREA NITROGEN 19 mg/dL (7-18)
[2017-01-11] MEDS: CEFTAROLINE 600 MG in SODIUM CHLORIDE 0.9% 100 ML IV SCH (04:47)
[2017-01-11 05:00] LABS: HEMATOCRIT 36.2 % (39.2-51.8); HEMOGLOBIN 12.6 g/dL (13.7-18.0); WHITE BLOOD COUNT 11.4 x10^3/uL (3.4-10)
[2017-01-11] MEDS: OXYcodone IR 5MG TABLET PO PRN ×2 (05:55→17:34)
[2017-01-11] MEDS: ALBUTEROL/IPRATROPIUM 2.5MG/0.5MG, 3 ML NPPB SCH ×4 (06:08→19:14)
[2017-01-11] MEDS: GUAIFENESIN/DM 100-10MG, 5ML UDC PO PRN (06:12)
[2017-01-11] MEDS ORDERED: SODIUM CHLORIDE 0.9% 1,000 ML IV SCH (07:00)
[2017-01-11 07:35] VITALS: BP 137/84
[2017-01-11] MEDS: METOPROLOL SUCCINATE 50 MG TAB.ER.24H PO SCH (08:09)
[2017-01-11] MEDS: AMLODIPINE 5 MG TABLET PO SCH (08:10)
[2017-01-11] MEDS: ENALAPRIL 20MG TABLET PO SCH (08:10)
[2017-01-11] MEDS: ACETAMINOPHEN 325 MG TABLET PO PRN ×2 (09:20→19:47)
[2017-01-11 13:32] VITALS: BP 120/74
[2017-01-11 14:00] LABS: BLOOD UREA NITROGEN 20 mg/dL (7-18)
[2017-01-11] MEDS: CEFTAROLINE 600 MG in SODIUM CHLORIDE 0.9% 250 ML IV SCH (16:07)
[2017-01-11 19:35] VITALS: BP 116/74
[2017-01-11] MEDS: NICOTINE 7 MG/24 HR PATCH.TD24 TD SCH (19:47)
[2017-01-11] MEDS: CALCIUM CARBONATE 500 MG TAB.CHEW PO PRN (21:35)
[2017-01-12] MEDS: methylPREDNISolone SOD SUCC 125 MG/2 ML IVPush SCH ×3 (00:29→17:36)
[2017-01-12] MEDS ORDERED: PNEUMOCOCCAL 23 VACCINE IM-VACC ONE (00:30)
[2017-01-12] MEDS ORDERED: FLU VACC QS2017-18 (36MOS+) UP/PF 0.5 ML IM-VACC ONE (00:30)
[2017-01-12 02:06] VITALS: BP 119/83
[2017-01-12] MEDS: CEFTAROLINE 600 MG in SODIUM CHLORIDE 0.9% 250 ML IV SCH (03:45)
[2017-01-12 04:30] LABS: BLOOD UREA NITROGEN 26 mg/dL (7-18)
[2017-01-12 05:49] LABS: HEMATOCRIT 35.4 % (39.2-51.8); HEMOGLOBIN 12.3 g/dL (13.7-18.0); WHITE BLOOD COUNT 13.5 x10^3/uL (3.4-10)
[2017-01-12] MEDS: ALBUTEROL/IPRATROPIUM 2.5MG/0.5MG, 3 ML NPPB SCH ×4 (06:50→18:25)
[2017-01-12] MEDS ORDERED: SODIUM CHLORIDE 0.9% 1,000 ML IV SCH ×2 (07:00→14:00)
[2017-01-12 08:20] VITALS: BP 106/70
[2017-01-12] MEDS: OXYcodone IR 5MG TABLET PO PRN ×3 (10:03→22:48)
[2017-01-12] MEDS: ACETAMINOPHEN 325 MG TABLET PO PRN ×3 (10:03→22:48)
[2017-01-12] MEDS: METOPROLOL SUCCINATE 50 MG TAB.ER.24H PO SCH (10:04)
[2017-01-12] MEDS: AMLODIPINE 5 MG TABLET PO SCH (10:04)
[2017-01-12] MEDS: ENALAPRIL 20MG TABLET PO SCH (10:04)
[2017-01-12 14:00] VITALS: BP 107/67
[2017-01-12] MEDS: LEVOFLOXACIN/PMX 750MG/150ML 150 ML IV SCH (15:08)
[2017-01-12 19:44] VITALS: BP 118/72
[2017-01-12] MEDS: CALCIUM CARBONATE 500 MG TAB.CHEW PO PRN (20:47)
[2017-01-12] MEDS: NICOTINE 7 MG/24 HR PATCH.TD24 TD SCH (20:48)
[2017-01-13] MEDS: methylPREDNISolone SOD SUCC 125 MG/2 ML IVPush SCH ×3 (01:05→16:59)
[2017-01-13 01:20] VITALS: BP 123/78
[2017-01-13 04:53] LABS: ASPARTATE AMINO TRANSFERASE 37 U/L (15-37); BLOOD UREA NITROGEN 34 mg/dL (7-18)
[2017-01-13 05:07] LABS: HEMATOCRIT 34.1 % (39.2-51.8); HEMOGLOBIN 11.8 g/dL (13.7-18.0); WHITE BLOOD COUNT 8.1 x10^3/uL (3.4-10)
[2017-01-13] MEDS: ALBUTEROL/IPRATROPIUM 2.5MG/0.5MG, 3 ML NPPB SCH ×4 (06:50→18:30)
[2017-01-13 07:33] VITALS: BP 117/65
[2017-01-13] MEDS: AMLODIPINE 5 MG TABLET PO SCH (09:00)
[2017-01-13] MEDS: ENALAPRIL 20MG TABLET PO SCH (10:14)
[2017-01-13] MEDS: METOPROLOL SUCCINATE 50 MG TAB.ER.24H PO SCH (10:14)
[2017-01-13] MEDS: OXYcodone IR 5MG TABLET PO PRN ×2 (10:25→18:39)
[2017-01-13] MEDS: ACETAMINOPHEN 325 MG TABLET PO PRN ×2 (10:25→18:39)
[2017-01-13] MEDS ORDERED: INSULIN REGULAR 100 UNITS/ML, 3ML VIAL IVPush ONE (13:00)
[2017-01-13] MEDS ORDERED: DEXTROSE 50%, 50ML SYRINGE IVPush ONE (13:00)
[2017-01-13 14:00] VITALS: BP 106/64
[2017-01-13 14:31] LABS: HIV 1&2 ANTIBODY SCREEN Nonreactive (Nonreactive); HIV-1 p24 ANTIGEN Nonreactive (Nonreactive)
[2017-01-13] MEDS: ENOXAPARIN 40 MG/0.4 ML SQ SCH (14:57)
[2017-01-13] MEDS: LEVOFLOXACIN/PMX 750MG/150ML 150 ML IV SCH (14:57)
[2017-01-13] MEDS: SODIUM CHLORIDE 0.9% 1,000 ML IV SCH (15:09)
[2017-01-13] MEDS: NICOTINE 7 MG/24 HR PATCH.TD24 TD SCH (19:54)
[2017-01-13 19:57] VITALS: BP 120/71
[2017-01-13] MEDS ORDERED: SODIUM BICARBONATE 8.4% 100 MEQ in DEXTROSE 5% 1,000 ML IV ONE (21:00)
[2017-01-13] MEDS: INSULIN ASPART 100 UNITS/ML, PEN SQ-INSULIN SCH (21:42)
[2017-01-14] MEDS: methylPREDNISolone SOD SUCC 125 MG/2 ML IVPush SCH ×3 (00:46→17:13)
[2017-01-14 01:27] VITALS: BP 122/78
[2017-01-14] MEDS: CALCIUM CARBONATE 500 MG TAB.CHEW PO PRN (01:54)
[2017-01-14 04:54] LABS: BLOOD UREA NITROGEN 34 mg/dL (7-18)
[2017-01-14 05:15] LABS: HEMATOCRIT 34.3 % (39.2-51.8); HEMOGLOBIN 11.7 g/dL (13.7-18.0); WHITE BLOOD COUNT 6.4 x10^3/uL (3.4-10)
[2017-01-14 07:10] VITALS: BP 126/74
[2017-01-14] MEDS: ALBUTEROL/IPRATROPIUM 2.5MG/0.5MG, 3 ML NPPB SCH ×4 (07:25→19:30)
[2017-01-14] MEDS: INSULIN ASPART 100 UNITS/ML, PEN SQ-INSULIN SCH ×4 (07:34→21:00)
[2017-01-14] MEDS: SODIUM CHLORIDE 0.9% 1,000 ML IV SCH ×2 (08:10→19:46)
[2017-01-14] MEDS: FUROSEMIDE 40 MG/4 ML IV SCH (11:29)
[2017-01-14] MEDS: AMLODIPINE 5 MG TABLET PO SCH (11:30)
[2017-01-14] MEDS: ENALAPRIL 20MG TABLET PO SCH (11:30)
[2017-01-14] MEDS: METOPROLOL SUCCINATE 50 MG TAB.ER.24H PO SCH (11:30)
[2017-01-14] MEDS: OXYcodone IR 5MG TABLET PO PRN ×2 (11:39→17:48)
[2017-01-14 13:20] VITALS: BP 121/74
[2017-01-14] MEDS: ENOXAPARIN 40 MG/0.4 ML SQ SCH (15:10)
[2017-01-14] MEDS: ACETAMINOPHEN 325 MG TABLET PO PRN (15:10)
[2017-01-14] MEDS: LEVOFLOXACIN/PMX 750MG/150ML 150 ML IV SCH (15:10)
[2017-01-14 19:41] VITALS: BP 128/77
[2017-01-14] MEDS ORDERED: PROCHLORPERAZINE 10MG TABLET PO PRN (20:00)
[2017-01-14] MEDS ORDERED: hydrALAzine 20 MG/ML, 1ML IV PRN (20:00)
[2017-01-14] MEDS: NICOTINE 7 MG/24 HR PATCH.TD24 TD SCH (21:05)
[2017-01-15 01:41] VITALS: BP 129/79
[2017-01-15] MEDS: OXYcodone IR 5MG TABLET PO PRN ×4 (01:53→22:46)
[2017-01-15] MEDS: methylPREDNISolone SOD SUCC 125 MG/2 ML IVPush SCH ×3 (01:53→17:36)
[2017-01-15] MEDS: ACETAMINOPHEN 325 MG TABLET PO PRN ×4 (01:53→22:46)
[2017-01-15 05:02] LABS: BLOOD UREA NITROGEN 36 mg/dL (7-18)
[2017-01-15] MEDS: SODIUM CHLORIDE 0.9% 1,000 ML IV SCH (05:08)
[2017-01-15 05:34] LABS: HEMATOCRIT 35.6 % (39.2-51.8); HEMOGLOBIN 12.3 g/dL (13.7-18.0); WHITE BLOOD COUNT 5.7 x10^3/uL (3.4-10)
[2017-01-15] MEDS: ALBUTEROL/IPRATROPIUM 2.5MG/0.5MG, 3 ML NPPB SCH ×4 (07:00→20:55)
[2017-01-15] MEDS: INSULIN ASPART 100 UNITS/ML, PEN SQ-INSULIN SCH ×4 (07:11→20:20)
[2017-01-15 08:11] VITALS: BP 122/73
[2017-01-15] MEDS: FUROSEMIDE 40 MG/4 ML IV SCH (09:33)
[2017-01-15] MEDS: AMLODIPINE 5 MG TABLET PO SCH (09:37)
[2017-01-15] MEDS: ENALAPRIL 20MG TABLET PO SCH (09:37)
[2017-01-15] MEDS: METOPROLOL SUCCINATE 50 MG TAB.ER.24H PO SCH (09:38)
[2017-01-15] MEDS: LEVOFLOXACIN/PMX 750MG/150ML 150 ML IV SCH (14:07)
[2017-01-15 14:48] VITALS: BP 116/71
[2017-01-15] MEDS: ENOXAPARIN 40 MG/0.4 ML SQ SCH (15:46)
[2017-01-15] MEDS: NICOTINE 7 MG/24 HR PATCH.TD24 TD SCH (20:22)
[2017-01-15 20:27] VITALS: BP 133/80
[2017-01-16] MEDS: methylPREDNISolone SOD SUCC 125 MG/2 ML IVPush SCH ×3 (00:56→17:51)
[2017-01-16 01:33] VITALS: BP 129/78
[2017-01-16] MEDS: ACETAMINOPHEN 325 MG TABLET PO PRN ×2 (04:51→16:48)
[2017-01-16] MEDS: OXYcodone IR 5MG TABLET PO PRN ×2 (04:51→16:48)
[2017-01-16] MEDS: ALBUTEROL/IPRATROPIUM 2.5MG/0.5MG, 3 ML NPPB SCH ×4 (07:35→18:53)
[2017-01-16 08:24] VITALS: BP 128/79
[2017-01-16 08:24] LABS: BLOOD UREA NITROGEN 35 mg/dL (7-18)
[2017-01-16] MEDS: ENALAPRIL 20MG TABLET PO SCH (08:27)
[2017-01-16] MEDS: AMLODIPINE 5 MG TABLET PO SCH (08:28)
[2017-01-16] MEDS: METOPROLOL SUCCINATE 50 MG TAB.ER.24H PO SCH (08:29)
[2017-01-16] MEDS: FUROSEMIDE 40 MG/4 ML IV SCH (08:32)
[2017-01-16] MEDS: INSULIN ASPART 100 UNITS/ML, PEN SQ-INSULIN SCH ×4 (08:33→20:48)
[2017-01-16 13:20] VITALS: BP 108/64
[2017-01-16] MEDS: LEVOFLOXACIN/PMX 750MG/150ML 150 ML IV SCH (14:56)
[2017-01-16] MEDS: ENOXAPARIN 40 MG/0.4 ML SQ SCH (15:11)
[2017-01-16 19:07] VITALS: BP 115/80
[2017-01-16] MEDS: NICOTINE 7 MG/24 HR PATCH.TD24 TD SCH (20:39)
[2017-01-17 01:09] VITALS: BP 118/80
[2017-01-17] MEDS: methylPREDNISolone SOD SUCC 125 MG/2 ML IVPush SCH ×2 (01:24→07:55)
[2017-01-17] MEDS: ACETAMINOPHEN 325 MG TABLET PO PRN (01:30)
[2017-01-17] MEDS: OXYcodone IR 5MG TABLET PO PRN ×2 (01:30→12:42)
[2017-01-17] MEDS: ALBUTEROL/IPRATROPIUM 2.5MG/0.5MG, 3 ML NPPB SCH ×2 (07:09→11:02)
[2017-01-17 07:24] VITALS: BP 130/82
[2017-01-17] MEDS ORDERED: FURO40TA6 PO (07:31)
[2017-01-17] MEDS ORDERED: PRED20TA PO (07:31)
[2017-01-17] MEDS ORDERED: LEVO750T6 PO (07:31)
[2017-01-17] MEDS: AMLODIPINE 5 MG TABLET PO SCH (07:55)
[2017-01-17] MEDS: FUROSEMIDE 40 MG/4 ML IV SCH (07:55)
[2017-01-17] MEDS: METOPROLOL SUCCINATE 50 MG TAB.ER.24H PO SCH (07:56)
[2017-01-17] MEDS: ENALAPRIL 20MG TABLET PO SCH (07:56)
[2017-01-17] MEDS: INSULIN ASPART 100 UNITS/ML, PEN SQ-INSULIN SCH ×2 (07:58→12:23)
== END 2017-01-17 13:00 | disposition home or self-care (01) | DRG 871 ==
LOC: ED 11:24 → EDIP 13:31 → 3NW 14:27
PROVIDERS: ADMIT Hospitalist; ATTEND Hospitalist
DX: A41.9 Sepsis, unspecified organism (principal); N17.0 Acute kidney failure with tubular necrosis; J81.0 Acute pulmonary edema; J96.01 Acute respiratory failure with hypoxia; C78.01 Secondary malignant neoplasm of right lung; E46 Unspecified protein-calorie malnutrition; J18.9 Pneumonia, unspecified organism; C78.02 Secondary malignant neoplasm of left lung; E83.42 Hypomagnesemia; C34.90 Malignant neoplasm of unspecified part of unspecified bronchus or lung; E87.1 Hypo-osmolality and hyponatremia; E83.51 Hypocalcemia; B19.20 Unspecified viral hepatitis C without hepatic coma; Z68.25 Body mass index [BMI] 25.0-25.9, adult; E87.5 Hyperkalemia; F12.90 Cannabis use, unspecified, uncomplicated; F17.200 Nicotine dependence, unspecified, uncomplicated; G89.29 Other chronic pain; I10 Essential (primary) hypertension; N40.0 Benign prostatic hyperplasia without lower urinary tract symptoms; Z51.5 Encounter for palliative care; Z79.52 Long term (current) use of systemic steroids; Z98.1 Arthrodesis status
CPT/HCPCS: 36415; 36600; 71010; 71020; 71275; 78582; 80048; 80053; 80202; 82803; 82962; 83605; 83735; 83880; 84100; 84132; 84145; 84484; 85025; 85610; 86703; 87040; 87070; 87077; 87147; 87184; 87186; 87205; 87899; 90686; 90732; 93005; 94640; 96365; J0696; J0712; J1650; J1815; J1940; J1956; J2543; J3370; J7070; J7620; Q9967; A9540; A9558; C9898; G0435; J2930; J3475; J7030; J7050